=== PATIENT | male | born 1950 | race Caucasian/White ===

== ENCOUNTER 2019-05-06 05:50 | Inpatient (IN) ==
[2019-05-06] MEDS ORDERED: TRANEXAMIC ACID 1,000 MG in NORMAL SALINE 100 ML IV PRN (06:00)
[2019-05-06] MEDS ORDERED: ceFAZolin SODIUM 1 GM VIAL IV PRN (06:00)
[2019-05-06] MEDS ORDERED: MORPHINE SULFATE 15 MG TABLET.SA PO PRN (06:00)
[2019-05-06] MEDS ORDERED: ROPIVACAINE HCL/PF 100 MG, EPINEPHrine 0.2 MG, KETOROLAC TROMETHAMINE 30 MG in NORMAL S... IJ PRN (06:00)
[2019-05-06] MEDS ORDERED: ceFAZolin SODIUM 1 GM VIAL ONE (06:36)
[2019-05-06] MEDS ORDERED: MIDAZOLAM HCL/PF 5 MG/ML VIAL ONE (06:38)
[2019-05-06] MEDS ORDERED: LIDOCAINE HCL 20 ML VIAL ONE (06:38)
[2019-05-06] MEDS ORDERED: PROPOFOL VIAL IV ONE (06:39)
[2019-05-06] MEDS ORDERED: EPINEPHrine 1 MG/ML AMPUL ONE ×2 (06:39)
[2019-05-06] MEDS ORDERED: BUPIVACAINE HCL/PF 10 ML VIAL ONE (06:46)
[2019-05-06] MEDS: RINGER'S SOLUTION,LACTATED 1,000 ML IV PRN ×2 (07:10→09:10)
--- NOTE | 2019-05-06 07:29 | ANES ---
Anesthesia Pre Procedure Eval Vitals/Labs: Last Vital Signs Temp 36.9 C 05/06/19 06:19 Pulse 64 05/06/19 06:19 Resp 16 05/06/19 06:19 BP 178/90 H 05/06/19 06:19 Pulse Ox 100 05/06/19 06:19 HOME MEDICATIONS amlodipine 5 mg tablet 5 mg PO DAILY 04/02/19 [Last Taken Unknown] dabigatran etexilate 150 mg capsule 150 mg PO BID 04/02/19 [Last Taken 05/01/19] furosemide 20 mg tablet 20 mg PO DAILY 04/02/19 [Last Taken Unknown] lisinopril 20 mg tablet 20 mg PO DAILY 04/02/19 [Last Taken Unknown] metoprolol succinate 50 mg tablet,extended release 24 hr 50 mg PO BID 04/02/19 [Last Taken Unknown] potassium chloride 20 mEq tablet,extended release 20 meq PO DAILY 04/02/19 [Last Taken Unknown] Allergies/Adverse Reactions: Allergies Allergy/AdvReac Type Severity Reaction Status Date / Time No Known Allergies Allergy Unverified 04/02/19 07:53 - Planned Procedure Planned Procedure: L Arthroplasty Total Hip Medication List Reviewed:: Yes Allergies Verified: Yes Medical History (Last Reviewed 05/06/19 @ 07:28 by Emerson Gregory CRNA) History of cardioversion stated only lasted about a day around 2011 Atrial fibrillation Onset Date: Unknown Hypertension Onset Date: Unknown Prostate cancer Surgical History (Last Reviewed 05/06/19 @ 07:28 by Emerson Gregory CRNA) History of prostate surgery History of total hip replacement right Family History (Last Reviewed 05/06/19 @ 07:28 by Emerson Gregory CRNA) Mother Hypertension A-fib Father Heart disease - Family Anesthesia History Family History:: no untoward family reactions to anesthesia, no familial bleeding tendencies, no family history of clotting disorders, no family history of premature - Airway/Neck/Teeth Within Normal Limits:: Yes Denture Type: Partial upper Neck Exam: full range of motion Mallampatti Score: 2 Thyromental (T-M) distance: > 6 cm Mandibulo Hyoid distance: > 3 cm - Respiratory Smoking Status: Never smoker Sleep Apnea currently treated: No Sleep Apnea by current assessment: No - Cardiovascular Cardiac History: arrhythmia - afib, hypertension Tolerate Activity: Fair Heart Sounds: S1 & S2, Irregular - Anesthesia Assessment and Plan ASA Class: PS, III Anesthesia Type Plan: General ET
[2019-05-06] MEDS ORDERED: NEOSTIGMINE METHYLSULFATE 1 MG/ML VIAL ONE (07:33)
[2019-05-06] MEDS ORDERED: ROCURONIUM BROMIDE 10 MG/ML VIAL ONE (07:33)
[2019-05-06] MEDS ORDERED: SUCCINYLCHOLINE CHLORIDE 20 MG/ML VIAL ONE (07:33)
[2019-05-06] MEDS ORDERED: GLYCOPYRROLATE 0.2 MG/ML VIAL ONE (07:33)
[2019-05-06] MEDS ORDERED: ONDANSETRON HCL/PF 2 MG/ML VIAL ONE (07:34)
[2019-05-06] MEDS ORDERED: DEXAMETHASONE SODIUM PHOSPHATE 10 MG/ML VIAL ONE (07:34)
[2019-05-06] MEDS ORDERED: KETOROLAC TROMETHAMINE 30 MG/ML VIAL ONE (07:34)
--- NOTE | 2019-05-06 08:01 | ANES ---
Anesthesia Pre Procedure Eval Vitals/Labs: Last Vital Signs Temp 36.9 C 05/06/19 06:19 Pulse 64 05/06/19 06:19 Resp 16 05/06/19 06:19 BP 178/90 H 05/06/19 06:19 Pulse Ox 100 05/06/19 06:19 HOME MEDICATIONS amlodipine 5 mg tablet 5 mg PO DAILY 04/02/19 [Last Taken Unknown] dabigatran etexilate 150 mg capsule 150 mg PO BID 04/02/19 [Last Taken 05/01/19] furosemide 20 mg tablet 20 mg PO DAILY 04/02/19 [Last Taken Unknown] lisinopril 20 mg tablet 20 mg PO DAILY 04/02/19 [Last Taken Unknown] metoprolol succinate 50 mg tablet,extended release 24 hr 50 mg PO BID 04/02/19 [Last Taken Unknown] potassium chloride 20 mEq tablet,extended release 20 meq PO DAILY 04/02/19 [Last Taken Unknown] Allergies/Adverse Reactions: Allergies Allergy/AdvReac Type Severity Reaction Status Date / Time No Known Allergies Allergy Unverified 04/02/19 07:53 - Planned Procedure Planned Procedure: L Arthroplasty Total Hip Medication List Reviewed:: Yes Allergies Verified: Yes Medical History (Last Reviewed 05/06/19 @ 07:07 by Emerson Gregory CRNA) History of cardioversion stated only lasted about a day around 2011 Atrial fibrillation Onset Date: Unknown Hypertension Onset Date: Unknown Prostate cancer Surgical History (Last Reviewed 05/06/19 @ 07:07 by Emerson Gregory CRNA) History of prostate surgery History of total hip replacement right Family History (Last Reviewed 05/06/19 @ 07:07 by Emerson Gregory CRNA) Mother Hypertension A-fib Father Heart disease - Family Anesthesia History Family History:: no untoward family reactions to anesthesia, no familial bleeding tendencies, no family history of clotting disorders, no family history of premature - Airway/Neck/Teeth Neck Exam: full range of motion
[2019-05-06] MEDS ORDERED: ACETAMINOPHEN 500 MG TABLET PO PRN (09:46)
[2019-05-06] MEDS ORDERED: DEXTROSE 5%-LACTATED RINGERS 1,000 ML IV PRN (09:46)
[2019-05-06] MEDS ORDERED: ZOLPIDEM TARTRATE 5 MG TABLET PO PRN (09:46)
[2019-05-06] MEDS ORDERED: MAGNESIUM HYDROXIDE 30 ML UDC PO PRN (09:46)
[2019-05-06] MEDS ORDERED: ONDANSETRON HCL/PF 2 MG/ML VIAL IV PRN (09:46)
[2019-05-06] MEDS ORDERED: diphenhydrAMINE HCL 50 MG/ML VIAL IV PRN (09:46)
[2019-05-06] MEDS ORDERED: MORPHINE SULFATE 4 MG/ML SYRG IV PRN (09:46)
[2019-05-06] MEDS ORDERED: MAG HYDROX/ALUMINUM HYD/SIMETH 30 ML UDC PO PRN (09:46)
--- NOTE | 2019-05-06 09:51 | OR ---
Operative Report - Dictated Report Narrative: Date: 05/06/2019 Preoperative diagnosis: Left hip degenerative joint disease. Postoperative diagnosis: Left hip degenerative joint disease. Procedure: Left total hip arthroplasty. Surgeon: Omar Hein M.D. City Administrator: Nacho Hurd PA-C (provided an essential set of skilled, educated and assisted with transfer, positioning, prepping, draping, manipulation, traction, irrigation, suturing, and placement of dressings all of which cannot be performed by the available surgical crew) Anesthesia: General and local periarticular joint injection. Complications: None Specimens: Bone for disposal per patient request. Estimated blood loss: 150 milliliters. Retained implants: Depuy Campbell size 8 femoral stem standard offset. Size 64 millimeter outside diameter 3-hole Tamms Gription acetabular cup. 64 millimeter outside by 40 millimeter inside diameter highly cross-linked acetabular liner. 40 millimeter diameter +5 millimeter cobalt chromium femoral head. Cancellous 6.5mm screw 35 millimeter length Indications: Mr. Tomas is a 68-year-old gentleman who has had long-standing left hip pain and arthrosis. This patient was followed in my clinic for period of time with significant complaints of left hip pain consistent with arthritic changes. He failed conservative measures including but not limited to activity modification, passage of time, medications, and other conservative measures. Patient wished to proceed with surgical treatment. The risks, benefits, and alternatives were discussed in clinic. The risks of , blood clots, bleeding, infection, nerve/tendon blood vessel/ injury, malposition of components, dislocation and/or instability of joint, intraoperative fracture, postoperative limited range of motion, persistent pain, failure of components, and need for additional procedures. Patient wished to proceed. Consent was obt ained after answering all questions. Procedure: After marking the correct extremity on the floor, the patient was taken to the operating room. A timeout was performed. IV antibiotics consisting of Ancef were administered prior to the procedure. A spinal anesthetic was induced by anesthesia. A Fan catheter was inserted. The patient was then transitioned to a lateral position on a well-padded pegboard. An axillary roll was placed. The head was in neutral position. The non- operative down leg was well-padded with SCD and MAULIK hose in place. The arms were supported and padded to protect from any undue pressure on the bony prominences and nerves. A well-padded anterior and posterior pelvic and chest posts were secured in order to maintain a stable position of the pelvis. This was placed so that the pelvis was perpendicular to the floor. The body was in line with the pelvis. Once it was felt that we had protected all the bony prominences and the patient was well secured with a safety belt as well, the leg was pre-scrubbed with alcohol, prepped and draped in a standard sterile fashion. A standard anterior lateral hip incision was marked out over the greater trochanter. Ioban drapes were then placed. The skin incision was then made. Sharp dissection with a scalpel utilizing cautery for hemostasis was carried out down to the gluteus and iliotibial band fascia. This was split in line with the skin incision. The greater trochanter bursa was excised. The anterior and posterior margins of the abductor tendon were identified. The anterior 1/2-1/3 of the tendon was tagged and reflected off the greater trochanter leaving a sleeve of tendon for repair at the completion of the case. This exposed the underlying hip joint capsule. A limb length stitch was placed in the skin and referencedd off a sarmad on the greater trochanter for evaluation of intraoperative limb lengths. An inverted T-type capsulotomy was made extending this up to the brim of the acetabulum. Using Homans to assist with elevation of the soft tissues off the anterior, superior, and inferior aspects of the femoral neck, the hip was then placed in a figure 4 position and the femoral head was dislocated. With the leg in an externally rotated and adducted position, the cutting flag was utilized in order to sarmad for a standard femoral neck cut approximately a fingerbreadth above the level of the lesser trochanter. This was done with reference to pre-operative films and overall alignment. This was done while protecting the surrounding soft tissues with Homans. The femoral head was then removed and sized for guidance on preparation of the acetabulum. It was noted that there was loss of articular cartilage on both the femoral head and weightbearing portions of the acetabulum. We then returned the leg to the table and turned our attention to the acetabulum. While protecting the surrounding soft tissues, the labrum and remaining tissue in the fovea were excised using a scalpel and cautery. A series of reamers up to size 64 millimeter were utilized to prepare the acetabulum. The final reamer had good purchase and exposed the bleeding subchondral bone. The acetabulum was then thoroughly irrigated ensuring that all bony and cartilaginous materials were removed, and the final acetabular shell was impacted into place. This was placed in approximately 45 degrees of abduction and 20 degrees of anteversion utilizing the outrigger and body axis for alignment. This had a good press fit. 1 6.5mm cancellous screw was placed in the superior posterior quadrant of the acetabulum. The shell was then thoroughly irrigated and the final polyethylene was impacted into place ensuring that it seated completely. This was then protected with a sponge while we returned our attention to the femur. With the leg in a figure 4 position, utilizing Homans for soft tissue protection, a box cutting osteotome, followed by Charnley awl, followed by serial reamers and broaches were utilized in order to prepare the femur. It was found that a size 8 broach gave good axial and rotational stability. The calcar reamer was utilized in order to clean up the cut edges. The proximal femur was visualized to ensure that there were no signs of fracture. A series of heads and necks were trialed. It was found that a standard offset neck and a + 5 femoral head gave good overall stability. There was minimal longitudinal instability. With the leg in the position of sleep, the femoral head was well covered. Hip range of motion was able to reach full extension and external rotation to greater than 75 degrees prior to impingement along the posterior acetabulum. The hip was able to be flexed to greater than 90 degrees with internal rotation greater than 60 degrees prior to anterior impingement. The limb lengths were near equal based on comparison to the contralateral side and the prior placed limb length stitch. At this point it was felt these were the appropriately sized femoral components as well as neck and femoral head. The trial implants were removed. The femur was thoroughly irrigated. The final implants were impacted into place, and the hip was reduced. After ensuring that there was no damage to the proximal femur, the standard periarticular joint injection of ropivacaine, Toradol, and epinephrine were injected into the joint capsule and surrounding soft tissues. Anesthesia then administered intravenous tranexamic acid. The capsule was repaired with a single interrupted #1 Vicryl. The abductor tendon was repaired to the greater trochanter utilizing #5 Ethibond through drill holes. This was oversewn with #1 Vicryl. The fascia was closed with interrupted #1 Vicryl and strata fix barbed suture. The wounds were thoroughly irrigated as we closed in layers. The deep and subcutaneous fat layers were closed with 0 and 3-0 Vicryl respectively. The subcutaneous tissue was closed with a running 3-0 Vicryl and the skin patti. All sponge, needle, blade, and instrument counts were correct prior to closing the wounds. Sterile dressings consisting of xeroform, 4 x 4's, and tape were applied. The patient was awoken and transferred to her hospital bed and then to the postanesthesia care unit in stable condition. Postoperative condition: The plan is to admit to the medical/surgical inpatient floor postoperatively. There will be a projected 1 to 3 day hospital stay. Postoperatively 24 hours of IV antibiotics, pain control, physical therapy, occupational therapy, and medical comanagement will be utilized. Patient will be weightbearing as tolerated with anterior hip precautions. Postoperative films will be obtained in the recovery room.
[2019-05-06] MEDS ORDERED: fentaNYL CITRATE/PF 50 MCG/ML AMPUL ONE (10:05)
--- NOTE | 2019-05-06 10:08 | ANES ---
Post Anesthesia Discharge - Transfer of Care Transfer of Care handoff given to nurse: Yes - Discharge from PACU Discharge from PACU when meets criteria: Yes - Fentanyl given for 5-12/10
[2019-05-06] MEDS ORDERED: MORPHINE SULFATE 4 MG/ML SYRG ONE (10:24)
--- NOTE | 2019-05-06 10:26 | ANES ---
Post Anesthesia Assessment - Vital Signs Vitals: Last Vital Signs Temp 36.2 C 05/06/19 10:00 Pulse 63 05/06/19 10:20 Resp 16 05/06/19 10:20 BP 152/91 H 05/06/19 10:20 Pulse Ox 98 05/06/19 10:20 Airway Patency: Normal - Mental Status Level Of Consciousness: Awake, Alert, Appropriate - Pain Level Pain Score: 5 - N/V Assessment Nausea/Vomiting Presence: None Dehydration:: No
[2019-05-06] MEDS: KETOROLAC TROMETHAMINE 15 MG/ML VIAL IV SCH ×3 (10:57→22:54)
[2019-05-06] MEDS: ceFAZolin SODIUM 1 GM in DEXTROSE 5 % IN WATER 100 ML IV SCH ×6 (10:59→22:53)
[2019-05-06] MEDS: oxyCODONE HCL/ACETAMINOPHEN 1 TAB TABLET PO PRN ×2 (11:12→15:23)
[2019-05-06] MEDS: METOPROLOL SUCCINATE 50 MG TABLET.SA PO SCH (20:07)
[2019-05-06] MEDS: MORPHINE SULFATE 15 MG TABLET.SA PO SCH (20:10)
[2019-05-06] MEDS ORDERED: SENNOSIDES/DOCUSATE SODIUM 1 TAB TABLET PO SCH (21:00)
[2019-05-07] MEDS: KETOROLAC TROMETHAMINE 15 MG/ML VIAL IV SCH ×2 (03:55→10:23)
[2019-05-07 06:39] LABS: Hematocrit 38.2 % (42.0-52.0); Mean Cell Volume 101.3 fl (78-100); Mean Corpuscular Hemoglobin 34.5 pg (27-31); Mean Platelet Volume 9.5 fl (8-11.3); Platelet Count 188 K/mm3 (150-450); Red Blood Count 3.77 M/mm3 (4.7-6.0); Red Cell Distribution Width 12.5 % (11.5-14.0); White Blood Count 10.4 K/mm3 (4.0-10.5)
[2019-05-07 06:44] LABS: Anion Gap 10.2 mmol/L (6.8-13.8); BUN/Creatinine Ratio 14.9 (9.0-21.6); Calcium * 8.3 mg/dL (7.9-10.9); Carbon Dioxide 28.8 mmol/L (24-32.6); Estimated Creat Clear 71.2
[2019-05-07] MEDS: oxyCODONE HCL/ACETAMINOPHEN 1 TAB TABLET PO PRN ×2 (07:00→13:24)
[2019-05-07] MEDS ORDERED: DABIGATRAN ETEXILATE MESYLATE 150 MG CAPSULE PO SCH (07:30)
[2019-05-07] MEDS: METOPROLOL SUCCINATE 50 MG TABLET.SA PO SCH (08:40)
[2019-05-07] MEDS: MORPHINE SULFATE 15 MG TABLET.SA PO SCH (08:41)
[2019-05-07] MEDS: FUROSEMIDE 20 MG TABLET PO SCH ×2 (08:43→10:23)
[2019-05-07] MEDS ORDERED: LISINOPRIL 20 MG TABLET PO SCH (09:00)
[2019-05-07] MEDS ORDERED: amLODIPine BESYLATE 5 MG TABLET PO SCH (09:00)
[2019-05-07] MEDS ORDERED: POTASSIUM CHLORIDE 20 MEQ TABLET.SA PO SCH (09:00)
--- NOTE | 2019-05-07 12:39 | DS ---
(1) Status post left hip replacement Problem: Acute (2) Acute blood loss anemia Problem: Acute (3) Hypertension Problem: Chronic (4) Atrial fibrillation Problem: Chronic Date of Discharge:: 05/07/19 Description of Stay: Mr. Tomas was admitted to the floor after undergoing left total hip arthroplasty. Tolerated this well. Was admitted to the floor postoperatively for 24 hours of IV antibiotics, pain control, medical comanagement, and occupational and physical therapy. OT and PT were consulted to assist with activities of daily living and ambulation. Was made weightbearing as tolerated with anterior hip precautions. Pain was initially controlled with IV regimen. This was transitioned to oral once tolerating a by mouth intake. Was resumed on home diet and medications. Had a Fan catheter inserted and the operating room which was discontinued on postoperative day 1. Pradaxa SCD and MAULIK hose were utilized for DVT prophylaxis. Vital signs remained stable to the hospital course. Serial labs were obtained which showed a final hemoglobin of 13.0 grams down from 15.4 g preoperatively. BMP was reviewed and was stable. Physical examination throughout the hospital course showed an extremity that had sensation that was intact to light touch, palpable pulses, a benign wound, motor intact to the toes, ankle, and knee. Once an oral pain regimen was tolerated and physical therapy goals were met, it was felt that they were stable for discharge to home. Instructions: Continue with weightbearing as tolerated and anterior hip precautions. Keep w ound clean and dry. If you note any drainage or for comfort you can cover with dry gauze and tape. Change every 2-3 days as needed. Continue with physical therapy. Resume home diet. Report any fever over 101.5 Fahrenheit, uncontrolled pain, increased drainage, foul odor of drainage, new or increased calf pain or shortness of breath, or any other significant complaints. Continue with MAULIK hose on the operative extremity until instructed otherwise. No driving until instructed otherwise. Follow up in approximately 10-14 days. Procedures Performed: see notes below List Procedures: Left total hip arthroplasty Results and Findings: Lab Pending Results 05/07/19 06:33: WBC 10.4, RBC 3.77 L, Hgb 13.0 L, Hct 38.2 L, MCV 101.3 H, MCH 34.5 H, MCHC 34.0, RDW 12.5, Plt Count 188, MPV 9.5 05/07/19 06:33: Sodium 133, Plasma Sodium 133, Potassium 4.0, Chloride 98, C arbon Dioxide 28.8, Anion Gap 10.2, BUN 18, Creatinine 1.21, Est GFR (Non-Af Amer) 64, BUN/Creatinine Ratio 14.9, Random Glucose 124 H, Calcium 8.3 Discharge Location: Home Disposition: Home self-care Condition: Good Discharge Activity: Weight bearing - With anterior hip precautions utilizing wheeled walker Discharge Diet: Low salt Additional Patient Instructions (free text): Outpatient Physical Therapy at [facility] rehab department on MondayMay 08 at 10:30 am. Follow up Orthopedic office appointment on MondayMay 21 at 10:00am. Prescriptions (Any new or edited meds): Morphine Sulfate [Ms Contin] 15 mg PO Q12H #14 tablet.sa Transmission Status: Sent to [place], [place] oxyCODONE HCL/ACETAMINOPHEN [Percocet 5 MG/325 MG] 2 tab PO Q4H PRN #56 tab PRN Reason: Moderate Pain (Pain Scale 4-6) Transmission Status: Sent to [place], [place] Sennosides/Docusate Sodium [Senokot-S] 2 tab PO HS #30 tab Transmission Status: Sent to [place], [place] Complete Home Medications List: Complete Home Medication List: amlodipine 5 mg tablet 5 mg PO DAILY 04/02/19 dabigatran etexilate 150 mg capsule 150 mg PO BID 04/02/19 furosemide 20 mg tablet 20 mg PO DAILY 04/02/19 lisinopril 20 mg tablet 20 mg PO DAILY 04/02/19 metoprolol succinate 50 mg tablet,extended release 24 hr 50 mg PO BID 04/02/19 potassium chloride 20 mEq tablet,extended release 20 meq PO DAILY 04/02/19 Morphine Sulfate [Ms Contin] 15 mg PO Q12H #14 tablet.sa 05/07/19 Sennosides/Docusate Sodium [Senokot-S] 2 tab PO HS #30 tab 05/07/19 oxyCODONE HCL/ACETAMINOPHEN [Percocet 5 MG/325 MG] 2 tab PO Q4H PRN #56 tab 05/07/19 Amb Orders for Discharge: PT Evaluation and Treatment* Facility: [facility], Location: Rehabilitation Services
[2019-05-07 13:03] VITALS: BP 112/89
== END 2019-05-07 13:45 | disposition home or self-care (01) | DRG 470 ==
LOC: MS 05:50
PROVIDERS: ADMIT Orthopaedic Surgery; ATTEND Orthopaedic Surgery
DX: Z79.01 Long term (current) use of anticoagulants; M16.12 Unilateral primary osteoarthritis, left hip; I10 Essential (primary) hypertension; D62 Acute posthemorrhagic anemia; I48.20 Chronic atrial fibrillation, unspecified
CPT/HCPCS: 36415; 73502; 80048; 85027; 97110; 97116; 97161; 97165; J2405